=== PATIENT | male | born 1975 | race Two or more races ===

== ENCOUNTER 2019-07-07 15:36 | Emergency (ER) | payer BC ==
--- OUTSIDE RECORDS SUMMARY | 2019-07-07 16:19 | XMS REPORT | Summary of Care ---
:1975 Author Organization [facility] Address [address] [place] [address] Care Team Providers Name Role Phone None, Ester Primary Care Provider Unavailable Reason for Visit Reason Comments Abdominal Pain pt states he was in [place] (06/14-06[place]18) and on 06/16 had vomiting , diarrhea and cramping. now the Sx' s have lessen but he still has diarrhea, bloating and abd pain. Encounter Details Date Type Department Care Team Description 06/30/2019 Office Visit [facility] Barrera, Tiffany, Diarrhea, unspecified Practice PA-C type (Primary Dx) [address] [place] [address] [place] [address] [phone] Allergies Active Allergy Reactions Severity Noted Date Comments Sulfa Antibiotics Unknown Reaction 07/26/2017 documented as of this encounter (statuses as of 06/30/2019) Medications Medication Sig Dispensed Refills Start Date End Date Status FINASTERIDE PO Take 1.25 mg by mouth 0 Active DAILY. documented as of this encounter (statuses as of 06/30/2019) Active Problems Problem Noted Date Acute bilateral low back pain without sciatica 01/24/2017 History of rectal bleeding 01/24/2017 documented as of this encounter (statuses as of 06/30/2019) Social History Tobacco Use Types Packs/Day Years Used Date Never Smoker Smokeless Tobacco: Never Used Alcohol Use Drinks/Week oz/Week Comments Yes 6 Glasses of wine 6.0 Alcohol Habits Answer Date Recorded How often do you have a drink containing alcohol? 2-3 times a week 01/28/2019 How many drinks containing alcohol do you have on a 1 or 2 01/28/2019 typical day when you are drinking? How often do you have six or more drinks on one Never 01/28/2019 occasion? Sex Assigned at Date Recorded Not on file Job Start Date Occupation Industry Not on file Not on file Not on file Travel History Travel Start Travel End No recent travel history available. documented as of this encounter Last Filed Vital Signs Vital Sign Reading Time Taken Comments Blood Pressure 122/72 06/30/2019 2:06 PM EDT Pulse 67 06/30/2019 2:06 PM EDT Temperature 36.8 06/30/2019 2:06 PM EDT C (98.3 F) Respiratory Rate - - Oxygen Saturation 98% 06/30/2019 2:06 PM EDT Inhaled Oxygen Concentration - - Weight 74.4 kg (164 lb) 06/30/2019 2:06 PM EDT Height 177.8 cm (5' 10") 06/30/2019 2:06 PM EDT Body Mass Index 23.53 06/30/2019 2:06 PM EDT documented in this encounter Patient Instructions Patient InstructionsDoTiffany rice PA-C - 06/30/2019 2:00 PM EDTBRAT diet -- Bananas, rice, apple sauce, toast x 2 days Push water No alcohol, fruit, dairy, caffeine Rest Ordered labs and stool cultures, will call with results documented in this encounter Progress Notes Tiffany Barrera PA-C - 06/30/2019 2:00 PM EDT PATIENT: Maxime Talamantes : 1975 DATE OF SERVICE: 06/30/2019 REFERRING PRACTITIONER: Jamaal PRIMARY CARE PROVIDER: None, Ester CHIEF COMPLAINT: Chief Complaint Patient presents with Abdominal Pain pt states he was in [place] (06/14[place]06/18) and on 06/16 had vomiting, diarrhea and cramping. now the Sx' s have lessen but he still has diarrhea, bloating and abd pain. Subjective HISTORY OF PRESENT ILLNESS: Maxime Talamantes is a 43-y.o. male who presents with continuing non-bloody diarrhea, bloating ab pain x 3 weeks Was in [place] 06/14- had vomiting, diarrhea, and cramping No recent abx Says he drinks good amount of water daily Eats healthy diet Has been drinking alcohol with diarrhea Has been taking OTC Imodium multiple times daily Denies fever, chills, nausea, vomiting, chest pains, SOB No past medical history on file. Past Surgical History: Procedure Laterality Date MA REPAIR ACHILLES TENDON,PRIMARY Right 12/2014 No family history on file. Current Outpatient Medications Medication Sig FINASTERIDE PO Take 1.25 mg by mouth DAILY. No current facility-administered medications for this visit. Allergies Allergen Reactions Sulfa Antibiotics Unknown Reaction Social History Socioeconomic History Marital status: Spouse name: Not on file Number of children: Not on file Years of education: Not on file Highest education level: Not on file Occupational History Not on file Social Needs Financial resource strain: Not on file Food insecurity: Worry: Not on file Inability: Not on file Transportation needs: Medical: Not on file Non-medical: Not on file Tobacco Use Smoking status: Never Smoker Smokeless tobacco: Never Used Substance and Sexual Activity Alcohol use: Yes Alcohol/week: 6.0 standard drinks Types: 6 Glasses of wine per week Frequency: 2-3 times a week Drinks per session: 1 or 2 Binge frequency: Never Drug use: Never Sexual activity: Not on file Lifestyle Physical activity: Days per week: Not on file Minutes per session: Not on file Stress: Not on file Relationships Social connections: Talks on phone: Not on file Gets together: Not on file Attends christian service: Not on file Active member of club or organization: Not on file Attends meetings of clubs or organizations: Not on file Relationship status: Not on file Intimate partner violence: Fear of current or ex partner: Not on file Emotionally abused: Not on file Physically abused: Not on file Forced sexual activity: Not on file Other Topics Concern Not on file 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: Skin: negative skin lesions Eyes: negative visual blurring Ears/Nose/Throat: positive rhinorrhea, sore throat, sinus pressure, post nasal drip Respiratory: negative cough Cardiovascular: negative chest pain Gastrointestinal: negative abdominal cramping, non-bloody diarrhea, nausea Genitourinary: negative burning on urination, dysuria Musculoskeletal: negative arthritis/joint pain Neurologic: negative numbness or tingling of feet or hands Psychiatric: negative anxiety Hematologic/Lymphatic/Immunologic: negative allergies Endocrine: negative diabetes or hot flashes/sweats Objective PHYSICAL EXAMINATION: VITALS: BP 122/72 (BP Location: Right arm, Patient Position: Sitting) | Pulse 67 | Temp 98.3 F (36.8 C) | Ht 5' 10" (1.778 m) | Wt 164 lb (74.4 kg ) | SpO2 98% | BMI 23.53 kg/m Body mass index is 23.53 kg/m. General appearance - alert, no distress, cooperative, oriented times 3 Skin - Skin color, texture, turgor normal. No rashes or lesions. Head - Normocephalic. No masses, lesions, tenderness or abnormalities Eyes - conjunctivae/corneas clear. PERRL, EOM's intact. Oropharynx - Lips, mucosa, and tongue normal. Teeth and gums normal. Oropharynx normal. Neck - Neck supple, FROM. No cervical or supraclavicular adenopathy. Thyroid normal, no enlargement Lungs - Good diaphragmatic excursion. Lungs clear. Chest symmetrical. Normal breath sounds. Heart - RRR. No murmurs, clicks or gallops. No peripheral edema. ABDOMEN: soft, diffusely tender. Bowel sounds normal. No masses, no organomegaly. . IMPRESSION: ICD-9-CM ICD-10-CM 1. Diarrhea, unspecified type 787.91 R19.7 STOOL CULTURE C. DIFFICILE (STOOL) GIARDIA AND CRYPTOSPORIDIUM COMPREHENSIVE METABOLIC PANEL CBC WITH DIFFERENTIAL CBC WITH DIFFERENTIAL COMPREHENSIVE METABOLIC PANEL Plan PLAN: BRAT diet -- Bananas, rice, apple sauce, toast x 2 days Push water No alcohol, fruit, dairy, caffeine Rest Ordered labs and stool cultures, will call with results Author: Tiffany Barrera PA-C 06/30/2019 14:10 documented in this encounter Plan of Treatment Date Type Specialty Care Team Description 08/05/2019 Office Visit Internal Medicine Ru Munson MD [address] [place] [address] [phone] Name Type Priority Associated Diagnoses Date/Time COMPREHENSIVE METABOLIC Lab Routine Diarrhea, unspecified 06/30/2019 2:27 PM PANEL type EDT CBC WITH DIFFERENTIAL Lab Routine Diarrhea, unspecified 06/30/2019 2:27 PM type EDT Name Type Priority Associated Diagnoses Order Schedule STOOL CULTURE Lab Routine Diarrhea, unspecified 1 Occurrences starting type 06/30/2019 until 12/27/2019 C. DIFFICILE (STOOL) Lab Routine Diarrhea, unspecified 1 Occurrences starting type 06/30/2019 until 12/27/2019 GIARDIA AND CRYPTOSPORIDIUM Lab Routine Diarrhea, unspecified 1 Occurrences starting type 06/30/2019 until 12/27/2019 COMPREHENSIVE METABOLIC Lab Routine Diarrhea, unspecified Expected: 2018 PANEL type (Approximate), Expires: 06/30/2020 CBC WITH DIFFERENTIAL Lab Routine Diarrhea, unspecified Expected: 2018 type (Approximate), Expires: 06/30/2020 Health Maintenance Due Date Last Done Comments INFLUENZA VACCINE (#1) 2019 DEPRESSION SCREENING 01/29/2020 01/28/2019 LIPID DISORDER SCREENING 06/26/2022 06/26/2017, 01/10/2017 HIV SCREENING Completed 06/26/2017 HPV IMMUNIZATION SERIES Aged Out No longer eligible based on patient's age to complete this topic MENINGOCOCCAL VACCINE IMM Aged Out No longer eligible based on patient's age to complete this topic PNEUMOCOCCAL 0-64 YRS Aged Out No longer eligible based on patient's age to complete this topic documented as of this encounter Results Not on filedocumented in this encounter Visit Diagnoses Diagnosis Diarrhea, unspecified type - Primary documented in this encounter Insurance Payer Benefit Plan / Subscriber ID Effective Dates Phone Address Type Group [employer] xxxxxxxxxxxx 2017-Present [employer] documented as of this encounter
[2019-07-07 16:22] LABS: INR 1.26 (0.82-1.09)
[2019-07-07 16:29] LABS: ABS Eosinophils 0.1 10^3/ul (0-0.6); ABS Lymphocytes 1.7 10^3/ul (1.0-4.8); ABS Monocytes 0.4 10^3/ul (0-0.8); ABS Neutrophils 2.5 10^3/ul (1.5-7.7); Eosinophil % 2.6 %; Hematocrit 40 % (42-52); Hemoglobin 13.5 g/dL (14.0-18.0); Lymphocyte % 35.5 %; Mean Corpuscular HGB Conc 34 g/dL (31-36); Mean Corpuscular Hemoglobin 33 pg (27-31); Mean Corpuscular Volume 96 fL (80-94); Mean Platelet Volume 9.1 fL (7.4-10.4); Nucleated Red Blood Cells % 0.1; Platelet Count 234 10^3/uL (150-450); Red Blood Count 4.17 10^6 /uL (4.18-5.48); Red Cell Distribution Width 12 % (10-15); White Blood Count 4.8 10^3/uL (3.5-10.8)
[2019-07-07 16:40] LABS: Albumin 4.2 g/dL (3.2-5.2); Calcium 9.3 mg/dL (8.6-10.3); Potassium 3.9 mmol/L (3.5-5.0)
[2019-07-07 16:46] LABS: Albumin/Globulin Ratio 1.6 (1-3); BUN/Creatinine Ratio 22.1 (8-20); EGFR African American 134.7 (>60); EGFR Non-African American 111.3 (>60); Globulin 2.6 g/dL (2-4); Total Protein 6.8 g/dL (6.4-8.9)
--- NOTE | 2019-07-07 17:08 | ED ---
HPI Chest Pain - HPI Summary HPI Summary: This patient is a 43 year old M presenting to [facility] accompanied by with a chief complaint of dull intermittent chest pain for approx 1 week. Pt has had constant chest pain since night of 07/07/19. Symptoms aggravated by nothing. Patient reports diaphoresis, SOB, and numbness in left arm. Per triage, the patient rates the pain 5/10 in severity. - History of Current Complaint Chief Complaint: EDChestPainROMI Time Seen by Provider: 07/07/19 16:55 Hx Obtained From: Patient Onset/Duration: Started Days Ago Timing: Intermittent Initial Severity: Moderate Current Severity: Moderate Pain Intensity: 5 Pain Scale Used: 0-10 Numeric Chest Pain Radiates: No Character: Dull/Aching Aggravating Factor(s): Nothing Alleviating Factor(s): Nothing Associated Signs and Symptoms: Positive: Chest Pain, Shortness of Breath, Diaphoresis, Other: - numbness in left arm - Allergy/Home Medications Allergies/Adverse Reactions: Allergies Allergy/AdvReac Type Severity Reaction Status Date / Time Sulfa (Sulfonamide Allergy Unknown Verified 07/07/19 16:21 Antibiotics) Reaction Details Home Medications: Home Medications Finasteride TAB* [Proscar TAB*] 1.25 mg PO DAILY 07/07/19 [History Confirmed ] PMH/Surg Hx/FS Hx/Imm Hx Sensory History: Denies: Hx Legally Blind Opthamlomology History: Denies: Hx Legally Blind EENT History: Denies: Hx Deafness Infectious Disease History: No Infectious Disease History: Denies: Traveled Outside the [place] in Last 30 Days - Family History Known Family History: Positive: Other - both parents alive and well - Social History Occupation: Employed Full-time Lives: With Family Alcohol Use: Occasionally Hx Substance Use: No Substance Use Type: Reports: None Hx Tobacco Use: No Smoking Status (MU): Never Smoked Tobacco Review of Systems Positive: Skin Diaphoresis Positive: Chest Pain Positive: Shortness Of Breath Positive: Numbness - left arm All Other Systems Reviewed And Are Negative: Yes Physical Exam - Summary Physical Exam Summary: Appearance: The patient is well-nourished in no acute distress and in no acute pain. Skin: The skin is warm and dry and skin color reflects adequate perfusion. HEENT: The head is normocephalic and atraumatic. The pupils are equal and reactive. The conjunctivae are clear and without drainage. Nares are patent and without drainage. Mouth reveals moist mucous membranes and the throat is without erythema and exudate. The external ears are intact. The ear canals are patent and without drainage. The tympanic membranes are intact. Neck: The neck is supple with full range of motion and non-tender. There are no carotid bruits. There is no neck vein distension. Respiratory: Mild chest wall tenderness. Lungs are clear to auscultation and breath sounds are symmetrical and equal. Cardiovascular: Heart is regular rate and rhythm. There is no murmur or rub auscultated. There is no peripheral edema and pulses are symmetrical and equal. Abdomen: The abdomen is soft and non-tender. There are normal bowel sounds heard in all four quadrants and there is no organomegaly palpated. Musculoskeletal: There is no back tenderness noted. Extremities are non-tender with full range of motion. There is good capillary refill. There is no peripheral edema or calf tenderness elicited. Neurological: Patient is alert and oriented to person, place and time. The patient has symmetrical motor strength in all four extremities. Cranial nerves are grossly intact. Deep tendon reflexes are symmetrical and equal in all four extremities. Psychiatric: The patient has an appropriate affect and does not exhibit any anxiety or depression. Triage Information Reviewed: Yes Vital Signs On Initial Exam: Initial Vitals Temp Pulse Resp BP Pulse Ox 98.5 F 73 18 158/81 100 07/07/19 15:40 07/07/19 15:40 07/07/19 15:40 07/07/19 15:40 07/07/19 15:40 Vital Signs Reviewed: Yes Diagnostics - Vital Signs Vital Signs Temp Pulse Resp BP Pulse Ox 07/07/19 15:40 98.5 F 73 18 158/81 100 - Laboratory Lab Results: Lab Results 07/07/19 07/07/19 07/07/19 Range/Units 16:04 16:04 16:04 WBC 4.8 (3.5-10.8) 10^3/uL RBC 4.17 L (4.18-5.48) 10^6 /uL Hgb 13.5 L (14.0-18.0) g/dL Hct 40 L (42-52) % MCV 96 H (80-94) fL MCH 33 H (27-31) pg MCHC 34 (31-36) g/dL RDW 12 (10-15) % Plt Count 234 (150-450) 10^3/uL MPV 9.1 (7.4-10.4) fL Neut % (Auto) 52.3 % Lymph % (Auto) 35.5 % Haralson % (Auto) 8.7 % Eos % (Auto) 2.6 % Baso % (Auto) 0.9 % Absolute Neuts (auto) 2.5 (1.5-7.7) 10^3/ul Absolute Lymphs (auto) 1.7 (1.0-4.8) 10^3/ul Absolute Monos (auto) 0.4 (0-0.8) 10^3/ul Absolute Eos (auto) 0.1 (0-0.6) 10^3/ul Absolute Basos (auto) 0.0 (0-0.2) 10^3/ul Absolute Nucleated RBC 0.0 10^3/ul Nucleated RBC % 0.1 INR (Anticoag Therapy) 1.26 H (0.82-1.09) Sodium 139 (135-145) mmol/L Potassium 3.9 (3.5-5.0) mmol/L Chloride 106 (101-111) mmol/L Carbon Dioxide 27 (22-32) mmol/L Anion Gap 6 (2-11) mmol/L BUN 17 (6-24) mg/dL Creatinine 0.77 (0.67-1.17) mg/dL Est GFR ( Amer) 134.7 (>60) Est GFR (Non-Af Amer) 111.3 (>60) BUN/Creatinine Ratio 22.1 H (8-20) Glucose 130 H (70-100) mg/dL Calcium 9.3 (8.6-10.3) mg/dL Total Bilirubin 1.00 (0.2-1.0) mg/dL AST 21 (13-39) U/L ALT 16 (7-52) U/L Alkaline Phosphatase 57 (34-104) U/L Troponin I 0.00 (<0.04) ng/mL Total Protein 6.8 (6.4-8.9) g/dL Albumin 4.2 (3.2-5.2) g/dL Globulin 2.6 (2-4) g/dL Albumin/Globulin Ratio 1.6 (1-3) Result Diagrams: 07/07/19 16:04 07/07/19 16:04 Lab Statement: Any lab studies that have been ordered have been reviewed, and results considered in the medical decision making process. - Radiology CXR Radiology Interpretation Completed By: Radiologist Summary of Radiographic Findings: CXR reveals, per radiologist, IMPRESSION:No acute cardiopulmonary process by radiograph. ED physician has reviewed this radiology report. - EKG 1539 Cardiac Rate: NL - 69 bpm EKG Rhythm: Sinus Rhythm Summary of EKG Findings: An EKG at 1539 reveals Normal sinus rhythm 69 bpm, normal ST, no ectopy, no STEMI Re-Evaluation - Re-Evaluation First Eval Re-Evaluation Time: 19:31 Comment: Discussed results and plan of care with pt. Chest Pain Course/Dx - Course Course Of Treatment: Mr. Talamantes presented with a couple of days of intermittent left-sided chest pain. He was nontoxic in appearance with stable vitals. EKG, chest x-ray and labs including a delayed troponin were all negative. I recommended follow-up with care connections - Diagnoses Provider Diagnoses: Chest pain Discharge - Sign-Out/Discharge Documenting (check all that apply): Patient Departure - Discharge Patient Received Moderate/Deep Sedation with Procedure: No - Discharge Plan Condition: Stable Disposition: HOME Patient Education Materials: Chest Pain (ED) Referrals: Non Staff,Doctor [Primary Care Provider] - 3 Days Additional Instructions: Follow up with primary care provider within 2-3 days. RETURN TO ED FOR ANY NEW OR WORSENING SYMPTOMS. - Billing Disposition and Condition Condition: STABLE Disposition: Home - Attestation Statements Document Initiated by Markosibe: Yes Documenting Scribe: Gladys Moulton Provider For Whom Jean Claude is Documenting (Include Credential): Dr. Gideon Fowler MD Scribe Attestation: Gladys Vasquez scribed for Dr. Gideon Fowler MD on 07/07/19 at 2100. Scribe Documentation Reviewed: Yes Provider Attestation: The documentation as recorded by the Gladys florian accurately reflects the service I personally performed and the decisions made by me, Dr. Gideon Fowler MD Status of Scribe Document: Viewed
[2019-07-07 20:08] VITALS: BP 110/80
== END 2019-07-07 20:09 | disposition home or self-care (01) ==
LOC: ED 15:36
DX: R07.9 Chest pain, unspecified (principal); Z88.2 Allergy status to sulfonamides
CPT/HCPCS: 36415; 71046; 80053; 84484; 85025; 85610; 93005; 99283